=== PATIENT | female | born 1980 | race Caucasian/White ===

== ENCOUNTER → 2017-05-16 | Outpatient (CLI) | payer OTHER ==
--- NOTE | 2017-05-16 11:05 | DIAGNOSTIC IMAGING REPORT ---
KUB CLINICAL HISTORY: N20.0 [id number] COMPARISON STUDY: CT scan dated 07/09/2015 FINDINGS: There are multiple tiny bilateral renal calculi more numerous on the right. The largest measures 2.5 mm in diameter. There is a right pelvic basin calcification likely representing a phlebolith. IMPRESSION: Bilateral nephrolithiasis. Electronically signed by: Harish Conroy M.D. 05/16/2017 11:04 AM Dictated Date/Time: 05/16/2017 11:03 AM
== END | disposition home or self-care (01) ==
LOC: C.RAD 10:18
PROVIDERS: ATTEND Urology
DX: N20.0 Calculus of kidney (principal)